=== PATIENT | male | born 1985 | race Caucasian/White ===

== ENCOUNTER 2018-10-20 00:56 | Emergency (ER) | payer BC, OTHER ==
[2018-10-20] MEDS ORDERED: METOCLOPRAMIDE HCL ORAL SOLN 10 MG/10 ML UDCUP PO ONE (01:32)
[2018-10-20] MEDS ORDERED: LIDOCAINE 2% VISCOUS SOLN 20 ML UDCUP PO ONE ×2 (01:32→02:40)
[2018-10-20] MEDS ORDERED: MAG HYDROX/AL HYDROX/SIMETH SUSP 30 ML UDCUP PO ONE (01:32)
[2018-10-20] MEDS ORDERED: KETOROLAC TROMETHAMINE INJ/PF 30 MG/1 ML SDV IV ONE (01:33)
--- NOTE | 2018-10-20 01:43 | ER Document Report ---
ED General - General TRAVEL OUTSIDE OF THE [place] IN LAST 30 DAYS: No - HPI Patient complains to provider of: Fever sore throat - General Chief Complaint: Flu Symptoms Stated Complaint: FEVER AND SORE THROAT Time Seen by Provider: 10/20/18 01:25 Primary Care Provider: ISAAC AMAYA FNP-C [Primary Care Provider] - Follow up as needed - HPI Notes: Patient coming in for evaluation of fever and sore throat. Patient states symptoms started on Tuesday did follow-up with his physician and was told that he had the flu and was placed on a Z-Osmany. Patient states he has 2 days of Z-Osmany left. Patient states that he continues to run fevers at home with diffuse myalgias no nausea no vomiting no diarrhea no shortness of breath no cough but has extensive pain in his throat. Patient does have a history of tonsillectomy states in the past no other past medical history does not smoke does not drink does not do any drugs. Patient states that he has not urinated in the last 12- 18 hours despite drinking Pedialyte concerned that he is getting dehydrated. No recent travel out of state or outside the country patient does state that he does have multiple kids at home that have had flulike symptoms as well. (PETRA CHENG) - Related Data Allergies/Adverse Reactions: Penicillins Allergy (Severe, Verified 10/20/18 01:08) Past Medical History - Social History Smoking Status: Unknown if Ever Smoked Family History: Reviewed & Not Pertinent - Immunizations Hx Diphtheria, Pertussis, Tetanus Vaccination: Yes Hx Pneumococcal Vaccination: 08/22/00 Review of Systems - Review of Systems Constitutional: Fever EENT: Throat pain Cardiovascular: No symptoms reported Respiratory: No symptoms reported Gastrointestinal: No symptoms reported Genitourinary: No symptoms reported Male Genitourinary: No symptoms reported Musculoskeletal: No symptoms reported Skin: No symptoms reported Hematologic/Lymphatic: No symptoms reported Neurological/Psychological: No symptoms reported -: Yes All other systems reviewed and negative Physical Exam - Vital signs Interpretation: Normal - General General appearance: Appears well, Alert - HEENT Head: Normocephalic, Atraumatic Eyes: Normal Conjunctiva: Normal Cornea: Normal Pupils: PERRL Ears: Normal External canal: Normal Tympanic membrane: Normal Sinus: Normal Nasal: Normal Mucous membranes: Dry Pharynx: Erythema, Exudate Neck: Normal - Respiratory Respiratory status: No respiratory distress Chest status: Nontender Breath sounds: Normal Chest palpation: Normal - Cardiovascular Rhythm: Regular Heart sounds: Normal auscultation Murmur: No - Abdominal Inspection: Normal Distension: No distension Bowel sounds: Normal Tenderness: Nontender Organomegaly: No organomegaly - Back Back: Normal, Nontender - Extremities General upper extremity: Normal inspection, Nontender, Normal color, Normal ROM, Normal temperature General lower extremity: Normal inspection, Nontender, Normal color, Normal ROM, Normal temperature, Normal weight bearing. No: Polo's sign - Neurological Neuro grossly intact: Yes Cognition: Normal Orientation: AAOx4 [place] Coma Scale Eye Opening: Spontaneous [place] Coma Scale Verbal: Oriented [place] Coma Scale Motor: Obeys Commands [place] Coma Scale Total: 15 Speech: Normal Motor strength normal: LUE, RUE, LLE, RLE Sensory: Normal - Psychological Associated symptoms: Normal affect, Normal mood - Skin Skin Temperature: Warm Skin Moisture: Dry Skin Color: Normal - Vital signs Vitals: Temp Pulse Resp BP Pulse Ox 99.6 F 104 H 18 137/73 H 96 10/20/18 01:12 10/20/18 01:12 10/20/18 01:12 10/20/18 01:12 10/20/18 01:12 Course - Re-evaluation Re-evalutation: 10/20/18 02:57 Strep swab and mono testing are negative. More likely patient has underlying viral illnesses such as influenza. IV fluid hydration was given to the patient states improvement of his sore throat with viscous lidocaine prescription for Magic mouthwash with viscous lidocaine was given to the patient along with Z ofran for possible nausea and vomiting. Plan patient that I would continue with the Z-Osmany at this time as he only has 2 more doses although more likely patient's symptoms are viral. To avoid any incomplete bacterial treatment. Patient will be discharged home (PETRA CHENG) 10/24/18 17:14 Throat culture came back for group A strep, patient allergic to penicillin, star ent had prescription for azithromycin 500 mg once a day for the next 5 days called in. (SUZY MARIA) - Vital Signs Vital signs: Temp Pulse Resp BP Pulse Ox 99.3 F 85 16 129/79 H 99 10/20/18 03:32 10/20/18 03:32 10/20/18 03:32 10/20/18 03:32 10/20/18 03:32 Discharge - Discharge Clinical Impression: Viral pharyngitis, Flu-like symptoms Condition: Good Disposition: HOME, SELF-CARE Instructions: Influenza ([facility]) [id number], Sore Throat ([facility]) Additional Instructions: We gave you a dose of Decadron today for your sore throat. This should help ease the pain. Your symptoms are consistent with a viral type illness more likely the flu. I would complete her course of antibiotics that has been previously prescribed to you. I will give you a prescription for Zofran nausea medication in case this is needed at home. Your symptoms are likely due to a virus. However, it is important that you continue to monitor for any concerning symptoms including inability to tolerate oral fluids, less than 2 urinations in a 24 hour period, and lethargy Please continue to offer oral solutions such as Pedialyte, water, gatorade. It is okay if you do not want to eat over the next several days but it is important that they continue to drink fluids. You may also provide a medication such as ibuprofen (Motrin) or acetaminophen (Tylenol) per box instructions for fever. Please also follow-up with your doctor in the next several days. Please take the medications given to you as prescribed. Prescriptions: Magic Mouthwash 5 - 10 ml PO Q6 #200 Ondansetron [Zofran Odt 4 mg Tablet] 1 - 2 tab PO Q4H PRN #30 tab.rapdis PRN Reason: For Nausea/Vomiting Forms: Return to Work Referrals: ISAAC AMAYA, FUR DRUMMER-C [Primary Care Provider] - Follow up as needed
[2018-10-20] MEDS: RINGERS SOLUTION,LACTATED 1,000 ML IV PRN ×2 (01:52→02:55)
[2018-10-20] MEDS ORDERED: DEXAMETHASONE SOD PHOS INJ 10 MG/1 ML VIAL IV ONE (02:37)
[2018-10-20 03:33] VITALS: BP 129/79
== END 2018-10-20 04:19 | disposition home or self-care (01) ==
LOC: ER 00:56
DX: R50.9 Fever, unspecified (principal); J02.9 Acute pharyngitis, unspecified
CPT/HCPCS: 99283; 96361; 96374; 96375; 36415; 87070; 87880; 87077; 86308; J3490; J1885; J7120; J1100